=== PATIENT | male | born 1960 | race African-American/Black ===

== ENCOUNTER 2017-11-25 01:45 | Emergency (ER) | payer MEDICARE, MEDICAID ==
[~2017-11-25] VITALS: Ht 175.3 cm; Wt 96.0 kg
[2017-11-25] MEDS ORDERED: CYCLOBENZAPRINE 10MG TABLET PO ONE (04:00)
[2017-11-25] MEDS ORDERED: KETOROLAC 30MG/ML VIAL IM ONE (04:00)
[2017-11-25 05:00] VITALS: BP 122/80
== END 2017-11-25 05:43 | disposition home or self-care (01) ==
LOC: ER 01:45
DX: M54.5 Low back pain (principal); J45.909 Unspecified asthma, uncomplicated
CPT/HCPCS: 96372; 99283; J1885

== ENCOUNTER 2022-06-16 04:35 | Emergency (ER) | payer MEDICARE, MEDICAID ==
[~2022-06-16] VITALS: Ht 175.3 cm; Wt 104.6 kg
[2022-06-16 09:15] VITALS: BP 128/81
== END 2022-06-16 09:45 | disposition home or self-care (01) ==
LOC: ER 04:35
DX: S00.03XA Contusion of scalp, initial encounter (principal); J45.909 Unspecified asthma, uncomplicated; H54.8 Legal blindness, as defined in USA; Z98.890 Other specified postprocedural states; W01.0XXA Fall on same level from slipping, tripping and stumbling without subsequent striking against object, initial encounter; Y93.89 Activity, other specified; Y92.010 Kitchen of single-family (private) house as the place of occurrence of the external cause
CPT/HCPCS: 99284